=== PATIENT | female | born 1940 | race Caucasian/White ===

== ENCOUNTER 2018-03-01 11:09 | Emergency (ER) | payer MEDICARE, OTHER ==
[~2018-03-01] VITALS: Ht 160 cm; Wt 86.2 kg
--- NOTE | 2018-03-01 12:58 | Diagnostic Imaging Report ---
EXAMINATION: CHEST 2 VIEWS INDICATION: \S\lt rib pain \[id number] \S\[id number] COMPARISON: None FINDINGS: PA and lateral views TUBES and LINES: None. LUNGS: Lungs are well inflated. Minimal atelectasis in both lung bases. There is no evidence of pneumonia or pulmonary edema. PLEURA: No pleural effusion or pneumothorax. HEART AND MEDIASTINUM: The cardiomediastinal silhouette is unremarkable. BONES AND SOFT TISSUES: Mild degenerative changes of the thoracic spine. Status post fixation of the cervical spine with hardware in place. Bilateral breast implants. UPPER ABDOMEN: No free air under the diaphragm. IMPRESSION: No acute thoracic abnormality. Left side the ribs appears unremarkable on limited evaluation due to overlapping left breast implant. Consider left rib x-ray series if concern for rib fracture. Signed by: Dr. Jena Whiting M.D. on 03/01/2018 12:55 PM
--- NOTE | 2018-03-01 14:20 | Diagnostic Imaging Report ---
LEFT-SIDED RIB X-RAY SERIES - 4 VIEWS HISTORY: \S\left side rib pain \[id number] \S\[id number] COMPARISON: Chest radiograph 03/01/2018 FINDINGS: Bones: No acute displaced fracture. Status post fixation of the cervical spine. Osseous alignment is within normal limits. Joints: The joint spaces are well-maintained. Soft tissues: Diffuse vascular calcifications of the abdominal aorta. Multilevel degenerative changes of the thoracolumbar spine. Left breast implant which is partially calcified. No consolidations in the left lung. IMPRESSION: No acute radiographic abnormality. Signed by: Dr. Jena Whiting M.D. on 03/01/2018 2:17 PM
== END 2018-03-01 14:42 | disposition home or self-care (01) ==
LOC: ER 11:14
DX: R07.89 Other chest pain (principal); S20.212A Contusion of left front wall of thorax, initial encounter; Y93.H2 Activity, gardening and landscaping; Y92.007 Garden or yard of unspecified non-institutional (private) residence as the place of occurrence of the external cause
CPT/HCPCS: 71046; 71101; 99283

== ENCOUNTER 2022-09-30 03:34 | Emergency (ER) | payer MEDICARE, OTHER ==
[~2022-09-30] VITALS: Ht 160 cm; Wt 86.2 kg
[2022-09-30] MEDS ORDERED: BUPIVACAINE HCL 0.25% 10ML MPF VIAL INJ ONE (04:15)
[2022-09-30] MEDS ORDERED: KETOROLAC TROMETHAMINE 30 MG/ML VIAL IV STA (04:22)
[2022-09-30] MEDS ORDERED: SODIUM CHLORIDE 0.9% 1000ML 1,000 ML IV STA (04:22)
[2022-09-30] MEDS ORDERED: METOCLOPRAMIDE HCL 10 MG/2ML VIAL IV STA (04:22)
[2022-09-30] MEDS ORDERED: DIPHENHYDRAMINE HCL INJ 50 MG/ML VIAL IV STA (04:22)
[2022-09-30 04:49] LABS: BASOPHILS # (AUTO) 0.1 (0.0-0.1); BASOPHILS % 0.8 % (0.0-1.0); EOSINOPHILS # (AUTO) 0.1 (0.0-0.4); EOSINOPHILS % 1.3 % (0.0-6.0); HEMATOCRIT 38.6 % (34.2-44.1); HEMOGLOBIN 12.7 g/dL (12.0-16.0); LYMPHOCYTES # (AUTO) 1.5 (1.0-3.2); LYMPHOCYTES % 20.5 % (18.0-39.1); MEAN CORPUSCULAR HEMOGLOBIN 29.3 pg (28-32); MEAN CORPUSCULAR HGB CONC 32.9 g/dL (31-35); MEAN CORPUSCULAR VOLUME 88.9 fL (81-99); MONOCYTES # (AUTO) 0.8 (0.2-0.8); MONOCYTES % 11.6 % (4.4-11.3); NEUTROPHILS # (AUTO) 4.6 (2.1-6.9); NEUTROPHILS % 65.5 % (38.7-80.0); PLATELET COUNT 229 x10e3/uL (140-360); RED BLOOD COUNT 4.34 x10e6/uL (3.6-5.1); RED CELL DISTRIBUTION WIDTH 12.7 % (11.7-14.4)
[2022-09-30 05:04] LABS: ALBUMIN 3.6 g/dL (3.5-5.0); ALBUMIN/GLOBULIN RATIO 1.2 (0.8-2.0); ANION GAP 13.8 mmol/L (8-16); CALCIUM 9.6 mg/dL (8.4-10.2); CREATININE, SERUM 0.76 mg/dL (0.57-1.11)
[2022-09-30 05:11] LABS: POTASSIUM 2.8 mmol/L (3.5-5.1)
[2022-09-30] MEDS ORDERED: POTASSIUM CHLORIDE 20 MEQ TAB CR PO STA (05:11)
[2022-09-30] MEDS ORDERED: FIORICET 50-301 EACH PO (05:43)
[2022-09-30 06:08] VITALS: BP 129/84
== END 2022-09-30 06:05 | disposition home or self-care (01) ==
LOC: ER 03:40
DX: R51.9 Headache, unspecified (principal); K08.89 Other specified disorders of teeth and supporting structures; E87.6 Hypokalemia; I10 Essential (primary) hypertension; E03.9 Hypothyroidism, unspecified
CPT/HCPCS: 36415; 70450; 80053; 85025; 99284; J1200; J1885; J2765; J7030